=== PATIENT | female | born 1945 | race Caucasian/White ===

== ENCOUNTER → 2017-06-25 | Day surgery (SDC) | payer MEDICARE, OTHER ==
[~2017-06-25] MED LIST: Lactated Ringers 1,000 ML IV SCH; Propofol 200 MG/20 ML SDV IV ONE
[2017-06-25 07:55] VITALS: BP 142/61
--- NOTE | 2017-06-25 11:40 | OR ---
DATE OF OPERATION: 06/25/2017 PREOPERATIVE DIAGNOSIS: ANEMIA AND GASTROESOPHAGEAL REFLUX DISEASE. POSTOPERATIVE DIAGNOSIS: ANEMIA AND GASTROESOPHAGEAL REFLUX DISEASE. SURGEON: Kenny Valdez MD PROCEDURE: EGD WITH BIOPSIES X2, POLYP REMOVAL X1, CARMEL. SURGEON: Kenny Valdez M.D. 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 COMPLICATIONS: None. SPECIMEN: 1. Antral biopsy x2. 2. Fundal polyp. 3. CARMEL. FINDINGS: 1. Full-length EGD. 2. Mild distal antral gastritis with multiple small erosions, no active bleeding. 3. Benign fundal adenomatous polyps. RECOMMENDATIONS: Medical followup with Dr. Butler. INDICATIONS: The patient apparently has new diagnosis of anemia and she has a history of some reflux, Dr. Butler sent her for EGD. DESCRIPTION OF PROCEDURE: The patient was prepped and draped, placed in the left lateral decubitus position. A lubricated Olympus gastroscope was inserted over a bit and advanced to cricopharyngeus area, and intubated in the esophagus. Esophageal lining was benign in its entire course. The Z-line was crisp and sharp around 39 cm. There was no significant hernia. No spontaneous reflux seen. There was no distal esophagitis, stricturing, ulceration, or Graves changes. The scope was advanced into the stomach through the pylorus into the second portion of the duodenum. This and the duodenal bulb were benign. The scope was brought back into the stomach and retroflexed. The upper fundus and cardia were essentially unremarkable. The patient does have a few small adenomatous polyps of the fundus. Adult Education Teacher removal of polyp with forceps was accomplished. The rest of the fundus was benign. The antrum itself appeared unremarkable other than its most distal portions in the peripyloric area, the patient had some mild inflammatory change consistent with gastritis. There were 3 or 4 small erosions without any active bleeding or overlying clot. Two biopsies of those areas were taken along with a CARMEL test. Air was suctioned, scope removed without complication. The patient is stable in recovery room. MARY/PATRICK /[id number]
== END ==
LOC: CC.SDS 06:27
PROVIDERS: ATTEND Family Medicine
DX: D64.9 Anemia, unspecified (principal); K31.7 Polyp of stomach and duodenum; K29.70 Gastritis, unspecified, without bleeding; K25.9 Gastric ulcer, unspecified as acute or chronic, without hemorrhage or perforation; K21.9 Gastro-esophageal reflux disease without esophagitis; I10 Essential (primary) hypertension; H91.90 Unspecified hearing loss, unspecified ear; E78.5 Hyperlipidemia, unspecified; E55.9 Vitamin D deficiency, unspecified; F41.9 Anxiety disorder, unspecified; M19.90 Unspecified osteoarthritis, unspecified site; Z79.899 Other long term (current) drug therapy; Z88.1 Allergy status to other antibiotic agents
CPT/HCPCS: 43239; 87081; J7120; J2704